=== PATIENT | male | born 1980 | race Caucasian/White ===

== ENCOUNTER 2021-08-12 08:42 | Outpatient (CLI) | payer OTHER ==
[~2021-08-12] VITALS: Ht 172.7 cm; Wt 110.0 kg
[2021-08-12] MEDS ORDERED: WELLBUTRIN SR150 M1 PO (08:54)
[2021-08-12] MEDS ORDERED: LEXAPRO20 MG PO (08:55)
[2021-08-12] MEDS ORDERED: WELLBUTRIN XL300 M1 PO (08:55)
[2021-08-12 08:56] VITALS: BP 122/84; PULSE 81; TEMP 98.9
--- NOTE | 2021-08-12 11:55 | NUR ---
Pt dressed and ready to go. Dr. Brizuela has been into discuss test results with pt, and pt denies any questions or concerns at time of departure.
== END 2021-08-12 12:00 | disposition home or self-care (01) ==
LOC: COL.CAR 08:42
DX: R42 Dizziness and giddiness (principal)

== ENCOUNTER → 2021-09-28 | Outpatient (CLI) | payer OTHER ==
[~2021-09-28] MED LIST: LEXAPRO20 MG PO; WELLBUTRIN SR150 M1 PO; WELLBUTRIN XL300 M1 PO
== END ==
LOC: MHCPAIN 10:22
DX: M53.3 Sacrococcygeal disorders, not elsewhere classified (principal); M47.817 Spondylosis without myelopathy or radiculopathy, lumbosacral region
CPT/HCPCS: G0463

== ENCOUNTER → 2021-10-20 | Outpatient (CLI) | payer OTHER | LOC: MHCPAIN 09:45 | DX: M53.3 Sacrococcygeal disorders, not elsewhere classified (principal); M47.817 Spondylosis without myelopathy or radiculopathy, lumbosacral region | CPT/HCPCS: G0260; J1040; Q9967 ==

== ENCOUNTER → 2021-11-15 | Outpatient (CLI) | payer OTHER | LOC: MHCPAIN 10:32 | DX: M53.3 Sacrococcygeal disorders, not elsewhere classified (principal); M54.50 Low back pain, unspecified; G89.29 Other chronic pain | CPT/HCPCS: G0463 ==